=== PATIENT | male | born 1930 | race Caucasian/White ===

== ENCOUNTER 2018-06-03 15:28 | Observation (INO) ==
--- NOTE | 2018-06-03 16:25 | ED ---
HPI General Chief Complaint: Fall Stated Complaint: Fall History of Present Illness HPI Narrative: Patient either tripped or had a syncopal episode with a loss of consciousness for several minutes only. Patient has no recollection as to exactly what occurred. Patient has a long history of slip and fall secondary to disability with ambulation. Patient has no change of mentation and is alert. No nausea or headache. Patient has no discomfort but had a significant contusion to his left forehead and also his left hand and left knee. No neck or back pain. No chest or abdominal pain. Related Data Home Medications Medication Instructions Recorded Confirmed Unable to Obtain Home Meds 06/03/18 06/03/18 Allergies Allergy/AdvReac Type Severity Reaction Status Date / Time No Known Allergies Allergy Verified 06/03/18 15:33 Review of Systems ROS: all other systems reviewed are negative [facility] Medical History Medical History High cholesterol (Acute) Hypertension (Acute) Surgical History Surgical History Hx of joint replacement (Acute) Hx of tonsillectomy (Acute) Social History Social History Second Hand Smoke Exposure: No Smoking Status: Former smoker Tobacco Type: Cigarettes How Often Do You Have a Drink Containing Alcohol: Monthly or less Recent Travel in [facility] within the Last 8 Weeks: No Recent Out of Country Travel within the Last 8 Weeks: No Immunization History Tetanus Immunization: <5 Years Tetanus Immunization Year if Known: 2018 Hx Influenza Vaccine This Season: Yes Exam Narrative Exam Narrative: GENERAL: Alert and oriented SKIN: Focused skin assessment warm/dry. Significant hematoma to left forehead and scalp. 3 cm laceration to left forehead above the eye. Abrasions to dorsum of hand and also to the left knee. However no significant laceration and good range of motion for both areas. HEAD: Atraumatic. Normocephalic except for area of hematoma and laceration EYES: Pupils equal and round. No scleral icterus. No injection or drainage. ENT: No nasal bleeding or discharge. Mucous membranes pink and moist. NECK and spine: Trachea midline. No JVD. Normal range of motion and no pain with rotation or flexion CARDIOVASCULAR: Regular rate and rhythm. No murmur appreciated. RESPIRATORY: No accessory muscle use. Clear to auscultation. Breath sounds equal bilaterally. GASTROINTESTINAL: Abdomen soft, non-tender, nondistended. Hepatic and splenic margins not palpable. MUSCULOSKELETAL: No obvious deformities. No clubbing. No cyanosis. No edema. NEUROLOGICAL: Awake and alert. No obvious cranial nerve deficits. Motor grossly within normal limits. Normal speech. PSYCHIATRIC: Appropriate mood and affect; insight and judgment normal. Procedures Laceration Laceration 1: Site: face Side (If applicable): left Size (cm): 3 Description: linear Depth: simple, single layer Anesthetic used: with epi Anesthesia technique:: local infiltration Amount (mL): 2 Pre-repair:: wound explored, irrigated extensively and deep structures intact Skin layer closed with: ethilon Size (cm): 4-0 Number of sutures:: 6 Technique:: simple, interrupted Course Reevaluation(s) Reevaluation #1: Patient stable laceration repaired. No change in mental status Time: 18:38 Reevaluation #2: Patient reevaluated with no significant changes. Patient oriented 3 and alert. Patient needs to be admitted to 23 hour observation for evaluation 21 Time: 18:29 Initial Documented Vital Signs Temperature 98.2 F 06/03/18 15:39 Pulse Rate 63 06/03/18 15:39 Respiratory Rate 16 06/03/18 15:39 Blood Pressure 179/82 H 06/03/18 15:39 Pulse Oximetry 100 06/03/18 15:39 Last Documented Vital Signs Temperature 98.2 F 06/03/18 15:39 Pulse Rate 66 06/03/18 19:25 Respiratory Rate 18 06/03/18 19:25 Blood Pressure 178/77 H 06/03/18 19:25 Pulse Oximetry 98 06/03/18 19:25 Critical Care Time Critical Care Time: No Medical Decision Making CRUZ Attestation CRUZ supervised visit: Yes Attestation: Excellent laceration repair and treatment. MDM Narrative Medical decision making narrative: Patient had slip and fall or syncope. Given the patient has had a head injury associated with its unknown as to whether the syncope occurred. Patient had loss of consciousness for a minute and when he came around he was confused and disoriented. Medical Screen Exam Complete: Yes Emergency Medical Condition: Yes (Stable) Differential Diagnosis Differential Diagnosis: Syncope; slip and fall; head injury; intracerebral bleed ; skull fracture; concussion Lab Data Result diagrams: 06/03/18 16:35 06/03/18 16:35 Lab Results 06/03/18 06/03/18 06/03/18 Range/Units 16:35 16:35 16:35 CBC w Diff Auto diff final WBC 6.0 (4.0-11.0) th/mm3 RBC 4.29 L (4.50-5.90) mil/mm3 Hgb 13.2 (13.0-17.0) gm/dL Hct 39.9 (39.0-51.0) % MCV 93.0 (80.0-100.0) fL MCH 30.7 (27.0-34.0) pg MCHC 33.0 (32.0-36.0) % RDW 13.5 (11.6-17.2) % Plt Count 246 (150-450) th/mm3 MPV 7.9 (7.0-11.0) fL Neut % (Auto) 72.7 H (16.0-70.0) % Lymph % (Auto) 18.0 (9.0-44.0) % [place] % (Auto) 6.9 (0.0-8.0) % Eos % (Auto) 1.6 (0.0-4.0) % Baso % (Auto) 0.8 (0.0-2.0) % Neut # (Auto) 4.4 (1.8-7.7) th/mm3 Lymph # (Auto) 1.1 (1.0-4.8) th/mm3 [place] # (Auto) 0.4 (0.0-0.9) th/mm3 Eos # (Auto) 0.1 (0.0-0.4) th/mm3 Baso # (Auto) 0.0 (0.0-0.2) th/mm3 WBC Differential . Differential Comment . Sodium 138 (136-145) meq/L Potassium 4.1 (3.5-5.1) meq/L Chloride 105 (98-107) meq/L Carbon Dioxide 28.6 (21.0-32.0) meq/L Anion Gap 4 L (5-15) meq/L BUN 18 (7-18) mg/dL Creatinine 0.86 (0.60-1.30) mg/dL Estimated GFR 84 L (>89) mL/min Random Glucose 97 (74-106) mg/dL Calcium 8.6 (8.5-10.1) mg/dL Magnesium 2.1 (1.5-2.5) mg/dL Total Bilirubin 0.3 (0.2-1.0) mg/dL AST 20 (15-37) U/L ALT 25 (12-78) U/L Alkaline Phosphatase 76 (45-117) U/L Troponin I Less than 0.02 L Cancelled (0.02-0.05) ng/mL Total Protein 7.0 (6.4-8.2) g/dL Albumin 3.6 (3.4-5.0) g/dL Urine Color (Yellw/Straw) Urine Clarity (Clear) Urine pH (5.0-8.5) Ur Specific [place] (1.002-1.035) Urine Protein (Neg-Trace) mg/dL Urine Glucose (UA) (Negative) mg/dL Urine Ketones (Negative) mg/dL Urine Occult Blood (Negative) Urine Nitrate (Negative) Urine Bilirubin (Negative) Urine Urobilinogen (Less than 2) mg/dL Ur Leukocyte Esterase (Negative) Urine RBC (0-3) /hpf Urine WBC (0-5) /hpf Ur Squamous Epith Cells (0-5) /hpf Micro UA Comment Urine Culture Comments 06/03/18 Range/Units 19:40 CBC w Diff WBC (4.0-11.0) th/mm3 RBC (4.50-5.90) mil/mm3 Hgb (13.0-17.0) gm/dL Hct (39.0-51.0) % MCV (80.0-100.0) fL MCH (27.0-34.0) pg MCHC (32.0-36.0) % RDW (11.6-17.2) % Plt Count (150-450) th/mm3 MPV (7.0-11.0) fL Neut % (Auto) (16.0-70.0) % Lymph % (Auto) (9.0-44.0) % [place] % (Auto) (0.0-8.0) % Eos % (Auto) (0.0-4.0) % Baso % (Auto) (0.0-2.0) % Neut # (Auto) (1.8-7.7) th/mm3 Lymph # (Auto) (1.0-4.8) th/mm3 [place] # (Auto) (0.0-0.9) th/mm3 Eos # (Auto) (0.0-0.4) th/mm3 Baso # (Auto) (0.0-0.2) th/mm3 WBC Differential Differential Comment Sodium (136-145) meq/L Potassium (3.5-5.1) meq/L Chloride (98-107) meq/L Carbon Dioxide (21.0-32.0) meq/L Anion Gap (5-15) meq/L BUN (7-18) mg/dL Creatinine (0.60-1.30) mg/dL Estimated GFR (>89) mL/min Random Glucose (74-106) mg/dL Calcium (8.5-10.1) mg/dL Magnesium (1.5-2.5) mg/dL Total Bilirubin (0.2-1.0) mg/dL AST (15-37) U/L ALT (12-78) U/L Alkaline Phosphatase (45-117) U/L Troponin I (0.02-0.05) ng/mL Total Protein (6.4-8.2) g/dL Albumin (3.4-5.0) g/dL Urine Color Yellow (Yellw/Straw) Urine Clarity Clear (Clear) Urine pH 6.0 (5.0-8.5) Ur Specific [place] 1.010 (1.002-1.035) Urine Protein Negative (Neg-Trace) mg/dL Urine Glucose (UA) Negative (Negative) mg/dL Urine Ketones Negative (Negative) mg/dL Urine Occult Blood Negative (Negative) Urine Nitrate Negative (Negative) Urine Bilirubin Negative (Negative) Urine Urobilinogen 0.2 (Less than 2) mg/dL Ur Leukocyte Esterase Negative (Negative) Urine RBC 0-3 (0-3) /hpf Urine WBC 0-5 (0-5) /hpf Ur Squamous Epith Cells 0-5 (0-5) /hpf Micro UA Comment Culture not ind Urine Culture Comments Culture not ind Imaging Data Radiologist's impression: Head CT 06/03/18 16:25 CONCLUSION: 1. Stable senescent changes. 2. No acute intracranial abnormality. 3. Small left parietal scalp hematoma. . Discharge Plan Discharge Disposition Patient Disposition: 30 Still Patient Physicians Team ED Provider: Shaheed Judd Primary Care Provider: Primary Care Randi Fitch Attending Provider: Sharath Vila Status ED Status: Admitted Observation Patient
[2018-06-03] MEDS ORDERED: Lidocaine 1%/Epinephrine 1:100,000 Inj 20 ML Vial INFILTRATN ONE (16:37)
[2018-06-03 16:46] LABS: Baso % (Auto) 0.8 % (0.0-2.0); Eos # (Auto) 0.1 th/mm3 (0.0-0.4); Eos % (Auto) 1.6 % (0.0-4.0); Hematocrit 39.9 % (39.0-51.0); Hemoglobin 13.2 gm/dL (13.0-17.0); Lymph # (Auto) 1.1 th/mm3 (1.0-4.8); Mean Corpuscular Hemoglobin 30.7 pg (27.0-34.0); Mean Platelet Volume 7.9 fL (7.0-11.0); Mono # (Auto) 0.4 th/mm3 (0.0-0.9); Mono % (Auto) 6.9 % (0.0-8.0); Neut # (Auto) 4.4 th/mm3 (1.8-7.7); Neut % (Auto) 72.7 % (16.0-70.0); Platelet Count 246 th/mm3 (150-450); Red Blood Count 4.29 mil/mm3 (4.50-5.90); Red Cell Distribution Width 13.5 % (11.6-17.2)
[2018-06-03 17:14] LABS: Anion Gap 4 meq/L (5-15); Blood Urea Nitrogen 18 mg/dL (7-18); Calcium 8.6 mg/dL (8.5-10.1); Carbon Dioxide 28.6 meq/L (21.0-32.0); Chloride 105 meq/L (98-107); Glomerular Filtration Rate 84 mL/min (>89); Glucose,Random 97 mg/dL (74-106); Magnesium 2.1 mg/dL (1.5-2.5); Potassium 4.1 meq/L (3.5-5.1); Sodium 138 meq/L (136-145)
--- NOTE | 2018-06-03 17:14 | CT ---
EXAM DATE: 06/03/2018 5:09 PM EDT AGE/SEX: 88 years / Male INDICATIONS: Fall, Laceration to left forehead CLINICAL DATA: This is the patient's initial encounter. Patient reports that signs and symptoms have been present for 1 day and indicates a pain score of 0/10. MEDICAL/SURGICAL HISTORY: Hypertension. Tonsillectomy. RADIATION DOSE: 61.00 CTDI (mGy) COMPARISON: [facility], MR BRAIN W/O CONTRAST, 06/12/2017. . TECHNIQUE: CT of the head without contrast. Using automated exposure control and adjustment of the mA and/or kV according to patient size, radiation dose was kept as low as reasonably achievable to ob tain optimal diagnostic quality images. DICOM format image data is available electronically for revi ew and comparison. FINDINGS: Cerebrum: Moderate diffuse cerebral atrophy. The ventricles are normal for degree of atrophy. No arabella dence of midline shift, mass lesion, hemorrhage or acute infarction. No extraaxial fluid collections are seen. Posterior Fossa: The cerebellum and brainstem are intact. The 4th ventricle is midline. The cerebe llopontine angle is unremarkable. Extracranial: The visualized portion of the orbits is intact. Small soft tissue hematoma in the left parietal scalp region. Skull: The calvaria is intact. No evidence of skull fracture. CONCLUSION: 1. Stable senescent changes. 2. No acute intracranial abnormality. 3. Small left parietal scalp hematoma. . Electronically signed by: Mika Costa MD 06/03/2018 5:13 PM EDT
[2018-06-03 17:15] LABS: Alanine Aminotransferase 25 U/L (12-78); Albumin 3.6 g/dL (3.4-5.0); Alkaline Phosphatase 76 U/L (45-117); Aspartate Aminotransferase 20 U/L (15-37)
[2018-06-03] MEDS ORDERED: Acetaminophen 325 MG Tablet PO PRN (18:30)
[2018-06-03] MEDS: Sod Chloride 0.9% Inj 1,000 ML IV.CONT SCH (19:40)
[2018-06-03 20:11] LABS: Bilirubin,Urine Negative (Negative); Clarity,Urine Clear (Clear); Color,Urine Yellow (Yellw/Straw); Glucose,Urine (UA) Negative (Negative); Leukocyte Esterase,Urine Negative (Negative); Nitrite,Urine Negative (Negative); Urobilinogen,Urine 0.2 mg/dL (Less than 2)
[2018-06-03 20:14] LABS: RBC,Urine 0-3 /hpf (0-3); Squamous Epithelial Cell,Urine 0-5 /hpf (0-5); WBC,Urine 0-5 /hpf (0-5)
[2018-06-03] MEDS ORDERED: Temazepam 15 MG Capsule PO PRN (21:00)
[2018-06-04] MEDS: Sod Chloride 0.9% Inj 1,000 ML IV.CONT SCH (09:56)
--- NOTE | 2018-06-04 11:07 | MR ---
EXAM DATE: 06/04/2018 10:48 AM EDT AGE/SEX: 88 years / Male INDICATIONS: . Decreased level of consciousness. CLINICAL DATA: This is the patient's initial encounter. Patient reports that signs and symptoms have been present for 1 day and indicates a pain score of 0/10. MEDICAL/SURGICAL HISTORY: Hypertension. Hypercholesterolemia. Tonsillectomy. Joint replacement . COMPARISON: [facility], CT HEAD W/O CONTRAST, 06/03/2018. . TECHNIQUE: Multiplanar, multisequence examination of the brain was performed without contrast. FINDINGS: Cerebrum: There is mild generalized atrophy with ventricular size within normal limits given the degr ee of atrophy. No midline shift, mass lesion, hemorrhage or acute infarction. No extraaxial fluid c ollections are seen. The pituitary gland and suprasellar cistern are normal in configuration. White Matter: There is mild periventricular and subcortical white matter signal change. Posterior Fossa: The cerebellum and brainstem demonstrate no acute abnormality. The 4th ventricle is midline. The cerebellopontine angle is within normal limits. The cerebellar tonsils are normal in p osition. Diffusion Imaging: No areas of restricted diffusion are seen. Extracranial: There is a mucous retention cyst in the left maxillary antrum measuring 1.1 cm. Left f rontal scalp soft tissue swelling and hematoma is again identified. CONCLUSION: 1. No acute intracranial abnormality is identified. There are no findings to indicate recent ischemi a. There are expected chronic changes including generalized cerebral atrophy and mild periventricular white matter change. 2. Stable left frontal scalp soft tissue swelling . Electronically signed by: José Bruno MD 06/04/2018 11:06 AM EDT
--- NOTE | 2018-06-04 11:38 | US ---
EXAM DATE: 06/04/2018 11:30 AM EDT AGE/SEX: 88 years / Male INDICATIONS: Syncope. CLINICAL DATA: This is the patient's initial encounter. Patient reports that signs and symptoms have been present for 1 day and indicates a pain score of 0/10. MEDICAL/SURGICAL HISTORY: Hypercholesterolemia. Hypertension. Tonsillectomy. Joint replacement . COMPARISON: No prior exams available for comparison. VELOCITY PARAMETERS: ICA/CCA Ratio: Right 1.5 , Left 1.1 ICA: Right 127 cm/sec, Left 101 cm/sec CCA: Right 86 cm/sec, Left 91 cm/sec ECA: Right 83 cm/sec, Left 87 cm/sec Vertebral: Right 55 cm/sec antegrade, Left 45 cm/sec antegrade FINDINGS: Right Carotid: There is mild calcified and noncalcified plaque in the carotid bulb and proximal inte rnal carotid artery.The waveforms are within normal limits. Left Carotid: There is mild calcified and noncalcified plaque in the carotid bulb. The waveforms are within normal limits. Other: None. CONCLUSION: 1. Right Internal Carotid Artery: Findings indicate <50% stenosis. 2. Left Internal Carotid Artery: Findings indicate <50% stenosis. Electronically signed by: José Bruno MD 06/04/2018 11:37 AM EDT
--- NOTE | 2018-06-04 12:12 | ECG ---
Date Performed: 06/03/2018 Time Performed: 16:33:05 PTAGE: 88 years EKG: Sinus rhythm MODERATE INTRAVENTRICULAR CONDUCTION DELAY BORDERLINE ECG NO PREVIOUS TRACING DOCTOR: Nj Victor Interpretating Date/Time 06/04/2018 12:11:43
--- NOTE | 2018-06-04 16:33 | P.HP ---
History of Present Illness Primary Care Physician: No Primary Care Physician History of Present Illness: 88-year-old male with history of hypertension was at his primary care physician yesterday when, upon leaving, he passed out by his car hitting his head on the cement floor. The fall was unwitnessed so it is uncertain whether he had a syncopal episode or whether he fell and hit his head causing concussion and loss of memory. He does not remember the event. He is not certain whether he tripped and fell. He states that he has had balance issues over the last year to and that may have been complicated by an awkward bag that he was carrying while ambulating to his car. He denies any fevers, denies nausea, denies vomiting, denies abdominal pain. He denies any urinary symptoms, denies dysuria , denies flank pain. He denies any chest pain, shortness of breath, or diaphoresis. Review of Systems All other systems reviewed negative except as stated in HPI [facility] - History History Provided By: Patient - Medical History Medical History: Medical History (Last Reviewed 06/03/18 @ 16:22 by Shaheed Judd MD) High cholesterol Hypertension - Surgical History Surgical History: Surgical History (Last Reviewed 06/03/18 @ 16:22 by Shaheed Judd MD) Hx of joint replacement Hx of tonsillectomy - Family History Family History: Family History (Last Updated 06/04/18 @ 16:28 by Sharath Vila MD) Other Hypertension - Tobacco History Second Hand Smoke Exposure: No Tobacco Use In Past 30 Days: No Smoking Status: Never smoker Tobacco Type: Cigarettes - Alcohol History How Often Do You Have a Drink Containing Alcohol: 2 to 3 times a week - Substance Use History Substance History: No History of Abuse - Travel History Recent Travel in the [place] Within the Last 8 Weeks: No Recent Travel Out of the Country Within the Last 8 Weeks: No - Immunization History Tetanus Immunization: <5 Years Tetanus Immunization Year if Known: 2017 Hx Influenza Vaccine This Season: Yes Medications and Allergies Active Medications: Active Medications Acetaminophen (Tylenol) 650 mg PO Q4H PRN PRN Reason: Temp > 100.4 Last Admin: 06/04/18 00:19 Dose: 650 mg Al Hydroxide/Mg Hydroxide (Milk Of Magnesia Liq) 30 ml PO Q12H PRN PRN Reason: Mild Constipation Clonidine HCl (Catapres) 0.1 mg PO Q6H PRN PRN Reason: SBP>160, DBP>90 Last Admin: 06/04/18 00:20 Dose: 0.1 mg Sodium Chloride (Ns Inj) 1,000 mls @ 64 mls/hr IV.CONT .[id number] SOHEILA Last Admin: 06/04/18 09:56 Dose: Not Given Ondansetron HCl (Zofran Inj) 4 mg IV.PUSH Q6H PRN PRN Reason: NAUSEA OR VOMITING Sodium Chloride (Ns Flush) 2 ml IV.FLUSH PRN PRN PRN Reason: FLUSH AFTER USING IV ACCESS Temazepam (Restoril) 15 mg PO HS PRN PRN Reason: INSOMNIA Allergies Allergy/AdvReac Type Severity Reaction Status Date / Time No Known Allergies Allergy Verified 06/03/18 15:33 Home Medications Medication Instructions Recorded Confirmed Type Unable to Obtain Home Meds 06/03/18 06/03/18 History Exam Vital signs: Vital Signs 06/03/18 18:33 06/03/18 19:25 06/03/18 20:00 Temperature Pulse Rate 64 66 Respiratory Rate 18 18 Blood Pressure 173/85 H 178/77 H Pulse Oximetry 98 98 97 06/03/18 20:40 06/03/18 20:50 06/04/18 04:00 Temperature 98.1 F 96.2 F L Pulse Rate 70 63 54 L Respiratory Rate 18 20 20 Blood Pressure 155/75 H 170/76 H 154/72 H Pulse Oximetry 97 98 94 L 06/04/18 08:00 06/04/18 12:00 Temperature 98.8 F 97.0 F L Pulse Rate 61 55 L Respiratory Rate 22 20 Blood Pressure 172/79 H 190/70 H Pulse Oximetry 97 97 Intake & Output 06/03/18 06/04/18 06/04/18 18:59 06:59 18:59 Intake Total 120 / 120 480 / 480 Output Total 1600 / 1600 2 / 2 Balance -1480 / -1480 478 / 478 Weight 97.522 kg 98.5 kg Intake: Oral 120 / 120 480 / 480 Output: Urine 1600 / 1600 Stool 2 / 2 Other: Date of Last Bowel Movement 06/04/18 # Bowel Movements 1 Weight On Admission 98 kg Narrative: GENERAL: AAOx3, no acute distress, adequate nutrition SKIN: Warm and dry, no rashes. Laceration under bandage of left parietal area scalp HEAD: Atraumatic. Normocephalic. EYES: Pupils equal, round, reactive to light. No scleral icterus. No injection or drainage. ENT: No nasal bleeding or discharge. Moist mucous membranes. Nonerythematous oropharynx. NECK: Trachea midline. No JVD. Thyroid size within normal limits. CARDIOVASCULAR: Regular rate and rhythm. No murmur, no gallops, no rubs. RESPIRATORY: Clear and equal to auscultation bilaterally. No crackles, no wheezes. No accessory muscle use. GASTROINTESTINAL: Abdomen soft, non-tender, nondistended, normal active bowel sounds. Hepatic and splenic margins not palpable. MUSCULOSKELETAL: Extremities without clubbing or cyanosis. No obvious deformities. No edema. NEUROLOGICAL: Awake and alert. No obvious cranial nerve deficits. Motor grossly within normal limits. No focal deficits. Five out of 5 muscle strength in the arms and legs. Normal speech. PSYCHIATRIC: Appropriate mood and affect; insight and judgment normal. Results - Labs CBC & Chem 7: 06/03/18 16:35 06/03/18 16:35 Labs: Laboratory Results - last 24 hr 06/03/18 06/03/18 06/03/18 16:35 16:35 16:35 CBC w Diff Auto diff final WBC 6.0 RBC 4.29 L Hgb 13.2 Hct 39.9 MCV 93.0 MCH 30.7 MCHC 33.0 RDW 13.5 Plt Count 246 MPV 7.9 Neut % (Auto) 72.7 H Lymph % (Auto) 18.0 [place] % (Auto) 6.9 Eos % (Auto) 1.6 Baso % (Auto) 0.8 Neut # (Auto) 4.4 Lymph # (Auto) 1.1 [place] # (Auto) 0.4 Eos # (Auto) 0.1 Baso # (Auto) 0.0 WBC Differential . Differential Comment . Sodium 138 Potassium 4.1 Chloride 105 Carbon Dioxide 28.6 Anion Gap 4 L BUN 18 Creatinine 0.86 Estimated GFR 84 L Random Glucose 97 Calcium 8.6 Magnesium 2.1 Total Bilirubin 0.3 AST 20 ALT 25 Alkaline Phosphatase 76 Troponin I Less than 0.02 L Cancelled Total Protein 7.0 Albumin 3.6 TSH Urine Color Urine Clarity Urine pH Ur Specific [place] Urine Protein Urine Glucose (UA) Urine Ketones Urine Occult Blood Urine Nitrate Urine Bilirubin Urine Urobilinogen Ur Leukocyte Esterase Urine RBC Urine WBC Ur Squamous Epith Cells Micro UA Comment Urine Culture Comments 06/03/18 06/04/18 19:40 05:45 CBC w Diff WBC RBC Hgb Hct MCV MCH MCHC RDW Plt Count MPV Neut % (Auto) Lymph % (Auto) [place] % (Auto) Eos % (Auto) Baso % (Auto) Neut # (Auto) Lymph # (Auto) [place] # (Auto) Eos # (Auto) Baso # (Auto) WBC Differential Differential Comment Sodium Potassium Chloride Carbon Dioxide Anion Gap BUN Creatinine Estimated GFR Random Glucose Calcium Magnesium Total Bilirubin AST ALT Alkaline Phosphatase Troponin I Total Protein Albumin TSH 3.570 Urine Color Yellow Urine Clarity Clear Urine pH 6.0 Ur Specific [place] 1.010 Urine Protein Negative Urine Glucose (UA) Negative Urine Ketones Negative Urine Occult Blood Negative Urine Nitrate Negative Urine Bilirubin Negative Urine Urobilinogen 0.2 Ur Leukocyte Esterase Negative Urine RBC 0-3 Urine WBC 0-5 Ur Squamous Epith Cells 0-5 Micro UA Comment Culture not ind Urine Culture Comments Culture not ind - Imaging Impressions Head CT 06/03/18 16:25 CONCLUSION: 1. Stable senescent changes. 2. No acute intracranial abnormality. 3. Small left parietal scalp hematoma. . Carotid Doppler Study 06/04/18 00:00 CONCLUSION: 1. Right Internal Carotid Artery: Findings indicate <50% stenosis. 2. Left Internal Carotid Artery: Findings indicate <50% stenosis. Head MRI 06/04/18 00:00 CONCLUSION: 1. No acute intracranial abnormality is identified. There are no findings to indicate recent ischemia. There are expected chronic changes including generalized cerebral atrophy and mild periventricular white matter change. 2. Stable left frontal scalp soft tissue swelling . Caprini VTE Risk Assessment Caprini VTE Risk Assessment: Moderate/High Risk (score >= 2) VTE Pharmacological Exception Reason: High risk for bleeding Caprini Risk Assessment Model: Point Value = 1 Point Value = 2 Point Value = 3 Point Value = 5 Age 41-60 Minor surgery BMI > 25 kg/m2 Swollen legs Varicose veins or History of unexplained or recurrent spontaneous Oral contraceptives or hormone replacement Sepsis (< 1 month) Serious lung disease, including pneumonia (< 1 month) Abnormal pulmonary function Acute myocardial infarction Congestive heart failure (< 1 month) History of inflammatory bowel disease Medical patient at bed rest Age 61-74 Arthroscopic surgery Major open surgery (> 45 min) Laparoscopic surgery (> 45 min) Malignancy Confined to bed (> 72 hours) Immobilizing plaster cast Central venous access Age >= 75 History of VTE Family history of VTE Factor V Leiden Prothrombin [id number] Lupus anticoagulant Anticardiolipin antibodies Elevated serum homocysteine Heparin-induced thrombocytopenia Other congenital or acquired thrombophilia Stroke (< 1 month) Elective arthroplasty Hip, pelvis, or leg fracture Acute spinal cord injury (< 1 month) Prophylaxis Regimen: Total Risk Factor Score Risk Level Prophylaxis Regimen 0-1 Low Early ambulation 2 Moderate Order ONE of the following: *Sequential Compression Device (SCD) *Heparin 5000 units SQ BID 3-4 Higher Order ONE of the following medications: *Heparin 5000 units SQ TID *Enoxaparin/Lovenox 40 mg SQ daily (WT < 150 kg, CrCl > 30 mL/min) *Enoxaparin/Lovenox 30 mg SQ daily (WT < 150 kg, CrCl > 10-29 mL/min) *Enoxaparin/Lovenox 30 mg SQ BID (WT < 150 kg, CrCl > 30 mL/min) AND/OR *Sequential Compression Device (SCD) 5 or more Highest Order ONE of the following medications: *Heparin 5000 units SQ TID (Preferred with Epidurals) *Enoxaparin/Lovenox 40 mg SQ daily (WT < 150 kg, CrCl > 30 mL/min) *Enoxaparin/Lovenox 30 mg SQ daily (WT < 150 kg, CrCl > 10-29 mL/min) *Enoxaparin/Lovenox 30 mg SQ BID (WT < 150 kg, CrCl > 30 mL/min) AND *Sequential Compression Device (SCD) Assessment and Plan - Plan Syncopal episode Trip/fall with concussion versus pure syncopal episode Syncopal episode is more concerning and deserves workup MRI brain negative, carotids are less than 50% stenotic Echocardiogram is pending DVT prophylaxis SCDs, chemoprophylaxis held due to head trauma with laceration and risk of [employer] bleed following a fall Hypertension Continue with home meds Discharge planning If echocardiogram is acceptable patient may be discharged
--- NOTE | 2018-06-04 18:01 | ECHRPT ---
Indication: Essential (primary) hypertension CONCLUSIONS Technically limited study. The left ventricular systolic function is low normal with an estimated ejection fraction in the rang e of 50- 55%. Wall thickness is measured at the upper limits of normal. Normal left ventricular size. BP: / HR: Rhythm: Sinus MEASUREMENTS (Male / Female) Normal Values Technical Quality:Technically difficult study 2D ECHO LV Diastolic Diameter PLAX 4.2 cm 4.2 - 5.9 / 3.9 - 5.3 cm LV Systolic Diameter PLAX 3.3 cm IVS Diastolic Thickness 1.2 cm 0.6 - 1.0 / 0.6 - 0.9 cm LVPW Diastolic Thickness 1.2 cm 0.6 - 1.0 / 0.6 - 0.9 cm LV Relative Wall Thickness 0.6 FINDINGS LEFT VENTRICLE The left ventricular systolic function is low normal with an estimated ejection fraction in the rang e of 50- 55%. Wall thickness is measured at the upper limits of normal. Normal left ventricular size. RIGHT VENTRICLE Normal right ventricular size and systolic function. LEFT ATRIUM The left atrial size is normal. RIGHT ATRIUM The right atrial size is normal. ATRIAL SEPTUM Normal atrial septal thickness without atrial level shunting by limited color doppler interrogation. AORTA The aortic root and proximal ascending aorta are normal in size on limited imaging. MITRAL VALVE Structurally normal mitral valve. No mitral valve stenosis or regurgitation. AORTIC VALVE Trileaflet aortic valve. No aortic valve stenosis or regurgitation. TRICUSPID VALVE Structurally normal tricuspid valve. No tricuspid valve stenosis or regurgitation. PULMONARY VALVE The pulmonary valve is not well visualized. VESSELS The inferior vena cava is normal in size. PERICARDIUM No pericardial effusion. Catherine Davidson MD, FACC (Electronically Signed) Final Date:04 June 2018 18:00
[2018-06-05] MEDS: Sod Chloride 0.9% Inj 1,000 ML IV.CONT SCH (01:21)
--- NOTE | 2018-06-05 08:41 | P.DS ---
Date of admission: 06/03/18 18:39 Primary care physician: No Primary Care Physician Brief History from admission: 88-year-old male with history of hypertension was at his primary care physician yesterday when, upon leaving, he passed out by his car hitting his head on the cement floor. The fall was unwitnessed so it is uncertain whether he had a syncopal episode or whether he fell and hit his head causing concussion and loss of memory. He does not remember the event. He is not certain whether he tripped and fell. He states that he has had balance issues over the last year to and that may have been complicated by an awkward bag that he was carrying while ambulating to his car. He denies any fevers, denies nausea, denies vomiting, denies abdominal pain. He denies any urinary symptoms, denies dysuria , denies flank pain. He denies any chest pain, shortness of breath, or diaphoresis. DS: Summary Hospital Course: 88-year-old male who suffered an unwitnessed fall with a head laceration. He did not remember the event so it was felt to be either syncope or fall with concussion. Syncope workup included acceptable carotids, normal MRI of the brain, echocardiogram within normal limits, no events on telemetry. He is appropriate for discharge today. He still has a headache with some lightheadedness. Most likely this is postconcussive and I have recommended that he takes it easy, avoid mental stress or hyperstimulation, and take extra precautions with his balance over the next 2 weeks. - Time Spent with Patient Total time spent providing and/or coordinating discharge services: Less than 30 minutes - Quality: VTE Deep Vein Thrombosis/Pulmonary Embolism Present on Admission: No Exam Vital signs: Vital Signs 06/04/18 12:00 06/04/18 16:00 06/04/18 20:00 Temperature 97.0 F L 98.7 F 96.4 F L Pulse Rate 55 L 83 63 Respiratory Rate 20 21 20 Blood Pressure 190/70 H 187/91 H 176/81 H Pulse Oximetry 97 97 96 06/05/18 00:00 06/05/18 04:00 Temperature 96.1 F L 96.0 F L Pulse Rate 59 L 61 Respiratory Rate 20 18 Blood Pressure 160/75 H 183/77 H Pulse Oximetry 96 99 Intake & Output 06/04/18 06/05/1806/05/18 18:59 06:59 18:59 Intake Total 720 / 720 1240 / 1240 Output Total 502 / 502 650 / 650 Balance 218 / 218 590 / 590 Weight 98 kg Intake: IV 1000 / 1000 NS Inj 1,000 ML @ 64 mls/hr IV. 1000 / 1000 CONT .[id number] [id number] Rx#: [id number] Oral 720 / 720 240 / 240 Output: Urine 500 / 500 650 / 650 Stool 2 / 2 Other: # Voids 3 Date of Last Bowel Movement 06/04/18 06/04/18 Results Procedures completed during hospitalization: none - Impressions ITS Impressions Head CT 06/03/18 16:25 CONCLUSION: 1. Stable senescent changes. 2. No acute intracranial abnormality. 3. Small left parietal scalp hematoma. . Carotid Doppler Study 06/04/18 00:00 CONCLUSION: 1. Right Internal Carotid Artery: Findings indicate <50% stenosis. 2. Left Internal Carotid Artery: Findings indicate <50% stenosis. Head MRI 06/04/18 00:00 CONCLUSION: 1. No acute intracranial abnormality is identified. There are no findings to indicate recent ischemia. There are expected chronic changes including generalized cerebral atrophy and mild periventricular white matter change. 2. Stable left frontal scalp soft tissue swelling . Discharge Plan - Discharge Disposition Patient Disposition: Discharge Home - Discharge Condition Condition: Good - Discharge Order Discharge Orders: Discharge Order (Routine); Ordered 06/05/18 Ordered By: Sharath Vila - Physicians Team Primary Care Provider: Primary Care Physici,No Attending Provider: Sharath Vila
== END 2018-06-05 11:33 | disposition home or self-care (01) ==
LOC: PHED 15:28 → PH3 15:28 → PHEDA 15:28 → PH3 20:47
PROVIDERS: ADMIT Family Medicine; ATTEND Family Medicine
DX: I10 Essential (primary) hypertension; Z96.60 Presence of unspecified orthopedic joint implant; R55 Syncope and collapse; S01.81XA Laceration without foreign body of other part of head, initial encounter; S60.519A Abrasion of unspecified hand, initial encounter; E78.00 Pure hypercholesterolemia, unspecified; W19.XXXA Unspecified fall, initial encounter; F17.210 Nicotine dependence, cigarettes, uncomplicated; S06.0X9A Concussion with loss of consciousness of unspecified duration, initial encounter